=== PATIENT | male | born 1965 | race Caucasian/White ===

== ENCOUNTER 2017-01-27 07:46 | Inpatient (IN) | payer MEDICAID ==
[~2017-01-27] VITALS: Ht 167.6 cm; Wt 72.6 kg
[2017-01-27 08:35] LABS: EOSINOPHILS % (AUTO) 1.5 % (0.0-3.0); LYMPHOCYTES % (AUTO) 18.9 % (20.0-45.0); MEAN CORPUSCULAR HEMOGLOBIN 28.9 PG (27.0-31.0); MEAN CORPUSCULAR HGB CONC 33.2 G/DL (32.0-36.0); MEAN CORPUSCULAR VOLUME 87 FL (80-99); MEAN PLATELET VOLUME 7.1 FL (6.5-10.1); MONOCYTES % (AUTO) 8.2 % (1.0-10.0); NEUTROPHILS % (AUTO) 70.4 % (45.0-75.0); PLATELET COUNT 297 K/UL (150-450); RED BLOOD COUNT 4.84 M/UL (4.70-6.10); RED CELL DISTRIBUTION WIDTH 12.2 % (11.6-14.8); WHITE BLOOD COUNT 11.1 K/UL (4.8-10.8)
[2017-01-27 08:50] LABS: ACETAMINOPHEN < 10 ug/mL (10-30); ALANINE AMINOTRANSFERASE 63 U/L (3-41); ALBUMIN/GLOBULIN RATIO 1.4 (1.0-2.7); ALCOHOL < 10 mg/dL; ANION GAP 20 (5-15); ASPARTATE AMINO TRANSFERASE 161 U/L (5-40); CALCIUM 9.4 mg/dL (8.6-10.2); CARBON DIOXIDE 21 mEQ/L (20-30); CHLORIDE 93 mEQ/L (98-107); CREATININE 1.2 mg/dL (0.7-1.2); GLOMERULAR FILTRATION RATE > 60 mL/min (>60); HEMOLYSIS 9; POTASSIUM 3.5 mEQ/L (3.4-4.9); SODIUM 134 mEQ/L (135-145); TOTAL PROTEIN 7.5 g/dL (6.6-8.7)
[2017-01-27] MEDS ORDERED: Trihexyphenidyl 2mg tab ORAL ONE (09:30)
[2017-01-27 10:06] VITALS: BP 120/70
--- NOTE | 2017-01-27 10:34 | Emergency Room Report ---
History of Present Illness General Chief Complaint: Behavioral Complaint Source: Patient, EMS Present Illness HPI 51 YOM BIBEMS with [employer]-placed 5150 for homicidal ideation. Patient endorses hearing voices, told him to hurt others. Denies SI. States did not take his risperdal for last "few days." States has enough meds at home. Also endorses drug use yesterday. Denies other medical problems. Allergies: Coded Allergies: AMOXICILLIN (Verified Allergy, Intermediate, 01/27/17) Patient History Past Medical History: psych hx Past Surgical History: none Pertinent Family History: none Social History: Reports: drug use, smoking Immunizations: UTD Reviewed Nursing Documentation: PMH: Agreed, PSxH: Agreed Nursing Documentation-PMH Hx Cardiac Problems: No Hx Hypertension: No Hx Pacemaker: No Hx Asthma: No Hx COPD: No Hx Diabetes: No Hx Cancer: No Hx Gastrointestinal Problems: No Hx Dialysis: No History Of Psychiatric Problem: Yes Hx Neurological Problems: No Hx Cerebrovascular Accident: No Hx Seizures: No Review of Systems All Other Systems: negative except mentioned in HPI Physical Exam Vital Signs Date Time Temp Pulse Resp B/P Pulse Ox O2 Delivery O2 Flow Rate FiO2 01/27/17 07:38 98.1 73 16 118/74 98 Room Air Sp02 EP Interpretation: reviewed, normal General Appearance: normal inspection, well appearing, no apparent distress, alert, GCS 15, non-toxic Head: normocephalic, atraumatic Eyes: bilateral eye EOMI, bilateral eye PERRL ENT: normal ENT inspection, hearing grossly normal, normal voice Neck: normal inspection, full range of motion, supple, no bony tend Respiratory: normal inspection, lungs clear, normal breath sounds, no respiratory distress, no retraction, no wheezing Cardiovascular #1: regular rate, rhythm, no edema Gastrointestinal: normal inspection, normal bowel sounds, non tender, soft, no guarding, no hernia Genitourinary: no CVA tenderness Musculoskeletal: normal inspection, back normal, normal range of motion, Jennifer' s Sign negative Neurologic: normal inspection, alert, oriented x3, responsive, rn travel III-XII nml as tested, motor strength/tone normal, speech normal Psychiatric: normal inspection, judgement/insight normal, memory normal, mood/ affect normal, no delusions Skin: normal inspection, normal color, no rash Lymphatic: normal inspection Medical Decision Making Diagnostic Impression: Primary Impression: Homicidal ideation Additional Impressions: Rhabdomyolysis Qualified Codes: M62.82 - Rhabdomyolysis Methamphetamine abuse Marijuana abuse ER Course Labs: Mild leuks 11k. CK 7K. elevated serum Cr Utox: Meth and MJ A: Rhabdomyolysis with DEMAR - 2L NS given in ED HI - Patient states voices "have mellowed out." Was given his dose of risperdal in ED - Mild leuks likely stress reaction from drug use. No obvious source of infection - Psychiatrist Dr Rolon saw patient in ED, will follow on floor Endorsed to Dr Oates at 1226pm for med/surg admission Last Vital Signs Date Time Temp Pulse Resp B/P Pulse Ox O2 Delivery O2 Flow Rate FiO2 01/27/17 10:06 98.0 78 16 120/70 98 Room Air Status: improved Disposition: ADMITTED INPATIENT Condition: Serious Referrals: [facility]ERRING (PCP) DOUGLAS GUZMÁN M.D. Jan 27, 2017 10:34
[2017-01-27 13:11] VITALS: BP 125/75
[2017-01-27] MEDS ORDERED: PROZAC20 MG ORAL (14:13)
[2017-01-27] MEDS ORDERED: RISPERDAL1 MG PO (14:13)
[2017-01-27] MEDS ORDERED: TRIHEXYPHENIDYL2 MG ORAL (14:13)
[2017-01-27] MEDS ORDERED: Morphine Sulfate 2mg/ml Inj IVP PRN (14:15)
[2017-01-27] MEDS ORDERED: Zolpidem 5mg tab ORAL PRN (14:15)
[2017-01-27] MEDS ORDERED: Mylanta II UD 30ml ORAL PRN (14:15)
[2017-01-27] MEDS ORDERED: LORazepam Inj 2mg/ml 1ml IV PRN (14:15)
[2017-01-27] MEDS ORDERED: Miralax 17gm pkt ORAL PRN (14:15)
[2017-01-27 16:00] VITALS: BP 118/69
[2017-01-27] MEDS: Sodium Bicarbonate 150 ML in D5W 1000ml 1,000 ML IV SCH (17:10)
[2017-01-27 20:00] VITALS: BP 120/75
--- NOTE | 2017-01-27 20:44 | History and Physical ---
History of Present Illness General Date patient seen: Jan 27, 2017 Reason for Hospitalization: Behavioral Complaint Present Illness HPI 51 year old male with hx of schizophrenia was brought in with [employer]-placed 5150 for homicidal ideation. Patient states that he is hearing voices, told him to hurt others. He did not take his risperdal for last few days. He is admitted for further evaluation. Allergies: Coded Allergies: AMOXICILLIN (Verified Allergy, Intermediate, 01/27/17) Medication History Scheduled Fluoxetine Hcl* (Prozac*), 20 MG ORAL DAILY, (Reported) Risperidone* (Risperdal*), 1 MG PO DAILY, (Reported) Trihexyphenidyl Hcl* (Artane*), 5 MG ORAL DAILY, (Reported) Patient History Healthcare decision maker Resuscitation status Advanced Directive on File Yes Past Medical/Surgical History Past Medical/Surgical History: (1) Methamphetamine abuse (2) Rhabdomyolysis Review of Systems All Other Systems: negative except mentioned in HPI Physical Exam General Appearance: WD/WN, no apparent distress Lines, tubes and drains: peripheral, central line HEENT: normocephalic, atraumatic Neck: non-tender, normal alignment Respiratory/Chest: chest wall non-tender, lungs clear Breasts: no masses Cardiovascular/Chest: normal peripheral pulses Abdomen: normal bowel sounds, non tender Genitourinary/Rectal: normal genital exam Last 24 Hour Vital Signs Date Time Temp Pulse Resp B/P Pulse Ox O2 Delivery O2 Flow Rate FiO2 01/27/17 13:37 78 16 120/70 98 Room Air 01/27/17 13:11 76 16 125/75 99 Room Air 01/27/17 10:06 98.0 78 16 120/70 98 Room Air 01/27/17 07:38 98.1 73 16 118/74 98 Room Air Laboratory Tests Test 01/27/17 08:10 White Blood Count 11.1 K/UL (4.8-10.8) H Red Blood Count 4.84 M/UL (4.70-6.10) Hemoglobin 14.0 G/DL (14.2-18.0) L Hematocrit 42.2 % (42.0-52.0) Mean Corpuscular Volume 87 FL (80-99) Mean Corpuscular Hemoglobin 28.9 PG (27.0-31.0) Mean Corpuscular Hemoglobin Concent 33.2 G/DL (32.0-36.0) Red Cell Distribution Width 12.2 % (11.6-14.8) Platelet Count 297 K/UL (150-450) Mean Platelet Volume 7.1 FL (6.5-10.1) Neutrophils (%) (Auto) 70.4 % (45.0-75.0) Lymphocytes (%) (Auto) 18.9 % (20.0-45.0) L Monocytes (%) (Auto) 8.2 % (1.0-10.0) Eosinophils (%) (Auto) 1.5 % (0.0-3.0) Basophils (%) (Auto) 1.0 % (0.0-2.0) Sodium Level 134 mEQ/L (135-145) L Potassium Level 3.5 mEQ/L (3.4-4.9) Chloride Level 93 mEQ/L (98-107) L Carbon Dioxide Level 21 mEQ/L (20-30) Anion Gap 20 (5-15) H Blood Urea Nitrogen 27 mg/dL (7-23) H Creatinine 1.2 mg/dL (0.7-1.2) Estimat Glomerular Filtration Rate > 60 mL/min (>60) Glucose Level 154 mg/dL (74-106) H Calcium Level 9.4 mg/dL (8.6-10.2) Total Bilirubin 0.9 mg/dL (0.0-1.2) Aspartate Amino Transf (AST/SGOT) 161 U/L (5-40) H Alanine Aminotransferase (ALT/SGPT) 63 U/L (3-41) H Alkaline Phosphatase 70 U/L (40-129) Total Creatine Kinase 7178 U/L (38-174) H Total Protein 7.5 g/dL (6.6-8.7) Albumin 4.4 g/dL (3.5-5.2) Globulin 3.1 g/dL Albumin/Globulin Ratio 1.4 (1.0-2.7) Salicylates Level < 1 mg/dL (10-30) L Urine Opiates Screen Negative (NEGATIVE) Acetaminophen Level < 10 ug/mL (10-30) L Urine Barbiturates Screen Negative (NEGATIVE) Phencyclidine (PCP) Screen Negative (NEGATIVE) Urine Amphetamines Screen Positive (NEGATIVE) H Urine Benzodiazepines Screen Negative (NEGATIVE) Urine Cocaine Screen Negative (NEGATIVE) Urine Marijuana (THC) Screen Positive (NEGATIVE) H Serum Alcohol < 10 mg/dL Height (Feet): 5 Height (Inches): 6.00 Weight (Pounds): 160 Medications Current Medications Medications (Trade) Dose Ordered Sig/Bibi Route PRN Reason Start Time Stop Time Status Last Admin Dose Admin Acetaminophen (Tylenol) 650 mg Q4H PRN ORAL fever 01/27/17 14:15 02/26/17 14:14 Al Hydroxide/Mg Hydroxide (Mylanta II) 30 ml Q6H PRN ORAL dyspepsia 01/27/17 14:15 02/26/17 14:14 Dextrose STAT PRN IV Hypoglycemia 01/27/17 14:15 02/26/17 14:14 Lorazepam (Ativan 2mg/ml 1ml) 0.5 mg Q4H PRN IV For Anxiety 01/27/17 14:15 02/03/17 14:14 Morphine Sulfate (Morphine Sulfate) 1 mg Q4H PRN IVP Pain 4-10 01/27/17 14:15 02/03/17 14:14 Ondansetron HCl (Zofran) 4 mg Q6H PRN IVP Nausea & Vomiting 01/27/17 14:15 02/26/17 14:14 Polyethylene Glycol (Miralax) 17 gm HSPRN PRN ORAL Constipation 01/27/17 14:15 02/26/17 14:14 Sodium Bicarbonate/ Dextrose (Sodium Bicarbonate/D5W 1000ml) 1,150 ml @ 100 mls/hr [id number] IV 01/27/17 15:00 02/26/17 14:59 01/27/17 17:10 Zolpidem Tartrate (Ambien) 5 mg HSPRN PRN ORAL Insomnia 01/27/17 14:15 02/26/17 14:14 Assessment/Plan Problem List: (1) Acute psychosis ICD Codes: F23 - Brief psychotic disorder SNOMED: 95188597 (2) Homicidal ideation ICD Codes: R45.850 - Homicidal ideations SNOMED: 822262467 (3) Rhabdomyolysis ICD Codes: M62.82 - Rhabdomyolysis SNOMED: 676107117 Qualifiers: Qualified Codes: M62.82 - Rhabdomyolysis (4) Methamphetamine abuse ICD Codes: F15.10 - Other stimulant abuse, uncomplicated SNOMED: 801635822 (5) Marijuana abuse ICD Codes: F12.10 - Cannabis abuse, uncomplicated SNOMED: 15921489 Assessment/Plan psych evaluation symptomatic treatment antipsychotic CESAR RESTREPO Jan 27, 2017 20:44
[2017-01-28] VITALS: BP 115/62
[2017-01-28] MEDS: Sodium Bicarbonate 150 ML in D5W 1000ml 1,000 ML IV SCH ×2 (03:20→14:00)
[2017-01-28 04:00] VITALS: BP 106/58
[2017-01-28 07:33] LABS: BASOPHILS % (AUTO) 1.2 % (0.0-2.0); EOSINOPHILS % (AUTO) 2.5 % (0.0-3.0); LYMPHOCYTES % (AUTO) 31.6 % (20.0-45.0); MEAN CORPUSCULAR HEMOGLOBIN 29.5 PG (27.0-31.0); MEAN CORPUSCULAR HGB CONC 33.1 G/DL (32.0-36.0); MEAN CORPUSCULAR VOLUME 89 FL (80-99); MEAN PLATELET VOLUME 6.4 FL (6.5-10.1); MONOCYTES % (AUTO) 8.2 % (1.0-10.0); NEUTROPHILS % (AUTO) 56.5 % (45.0-75.0); PLATELET COUNT 202 K/UL (150-450); RED BLOOD COUNT 4.03 M/UL (4.70-6.10); RED CELL DISTRIBUTION WIDTH 12.6 % (11.6-14.8); WHITE BLOOD COUNT 6.5 K/UL (4.8-10.8)
[2017-01-28 07:41] LABS: ALANINE AMINOTRANSFERASE 40 U/L (3-41); ALBUMIN/GLOBULIN RATIO 1.5 (1.0-2.7); ANION GAP 11 (5-15); ASPARTATE AMINO TRANSFERASE 72 U/L (5-40); CALCIUM 8.6 mg/dL (8.6-10.2); CARBON DIOXIDE 30 mEQ/L (20-30); CHLORIDE 99 mEQ/L (98-107); CHOLESTEROL 110 mg/dL (< 200); CHOLESTEROL/HDL RATIO 3.2 (3.3-4.4); CREATININE 0.8 mg/dL (0.7-1.2); GLOMERULAR FILTRATION RATE > 60 mL/min (>60); HEMOLYSIS 6; LDL CHOLESTEROL (CALC.) 64 mg/dL (60-99); POTASSIUM 3.1 mEQ/L (3.4-4.9); SODIUM 140 mEQ/L (135-145); TOTAL PROTEIN 5.6 g/dL (6.6-8.7)
[2017-01-28 07:42] LABS: THYROID STIMULATING HORMONE 0.805 uIU/mL (0.300-4.500)
[2017-01-28 08:00] VITALS: BP 108/57
[2017-01-28 12:00] VITALS: BP 116/74
--- NOTE | 2017-01-28 15:28 | Pulmonology Progress Note ---
Assessment/Plan Problems: (1) Acute psychosis (2) Homicidal ideation (3) Rhabdomyolysis (4) Methamphetamine abuse (5) Marijuana abuse Assessment/Plan pt is cleared by psychology d/c home with outpatient psych evaluation Subjective ROS Limited/Unobtainable: Yes Allergies: Coded Allergies: AMOXICILLIN (Verified Allergy, Intermediate, 01/27/17) Objective Last 24 Hour Vital Signs Date Time Temp Pulse Resp B/P Pulse Ox O2 Delivery O2 Flow Rate FiO2 01/28/17 12:00 97.8 64 18 116/74 97 Room Air 01/28/17 08:00 98.1 66 18 108/57 97 Room Air 01/28/17 04:00 97.4 73 16 106/58 99 Room Air 01/28/17 00:00 98.2 72 18 115/62 100 Room Air 01/27/17 20:00 98.1 80 18 120/75 99 Room Air 01/27/17 16:00 97.9 73 19 118/69 97 Room Air Intake and Output 01/27/17 01/28/17 19:00 07:00 Intake Total 224 ml 1250 ml Balance 224 ml 1250 ml Intake Oral 224 ml 450 ml IV Total 800 ml # Voids 1 1 # Bowel Movements 1 General Appearance: WD/WN HEENT: normocephalic, atraumatic Respiratory/Chest: chest wall non-tender, lungs clear Cardiovascular: normal peripheral pulses, normal rate Abdomen: normal bowel sounds, soft, non tender Extremities: no clubbing Skin: no lesions, no ulcers Laboratory Tests 01/28/17 05:45: White Blood Count 6.5, Red Blood Count 4.03L, Hemoglobin 11.9L, Hematocrit 35.9L , Mean Corpuscular Volume 89, Mean Corpuscular Hemoglobin 29.5, Mean Corpuscular Hemoglobin Concent 33.1, Red Cell Distribution Width 12.6, Platelet Count 202, Mean Platelet Volume 6.4L, Neutrophils (%) (Auto) 56.5, Lymphocytes ( %) (Auto) 31.6, Monocytes (%) (Auto) 8.2, Eosinophils (%) (Auto) 2.5, Basophils (%) (Auto) 1.2, Sodium Level 140, Potassium Level 3.1L, Chloride Level 99, Carbon Dioxide Level 30, Anion Gap 11, Blood Urea Nitrogen 11, Creatinine 0.8, Estimat Glomerular Filtration Rate > 60, Glucose Level 193H, Calcium Level 8.6, Total Bilirubin 0.5, Aspartate Amino Transf (AST/SGOT) 72H, Alanine Aminotransferase (ALT/SGPT) 40, Alkaline Phosphatase 54, Total Protein 5.6L, Albumin 3.4L, Globulin 2.2, Albumin/Globulin Ratio 1.5, Triglycerides Level 60, Cholesterol Level 110, LDL Cholesterol 64, HDL Cholesterol 34, Cholesterol/HDL Ratio 3.2L, Thyroid Stimulating Hormone (TSH) 0.805 Current Medications Medications (Trade) Dose Ordered Sig/Bibi Route PRN Reason Start Time Stop Time Status Last Admin Dose Admin Acetaminophen (Tylenol) 650 mg Q4H PRN ORAL fever 01/27/17 14:15 02/26/17 14:14 Al Hydroxide/Mg Hydroxide (Mylanta II) 30 ml Q6H PRN ORAL dyspepsia 01/27/17 14:15 02/26/17 14:14 Dextrose STAT PRN IV Hypoglycemia 01/27/17 14:15 02/26/17 14:14 Lorazepam (Ativan 2mg/ml 1ml) 0.5 mg Q4H PRN IV For Anxiety 01/27/17 14:15 02/03/17 14:14 Morphine Sulfate (Morphine Sulfate) 1 mg Q4H PRN IVP Pain 4-10 01/27/17 14:15 02/03/17 14:14 Ondansetron HCl (Zofran) 4 mg Q6H PRN IVP Nausea & Vomiting 01/27/17 14:15 02/26/17 14:14 Polyethylene Glycol (Miralax) 17 gm HSPRN PRN ORAL Constipation 01/27/17 14:15 02/26/17 14:14 Risperidone (RisperDAL) 2 mg BEDTIME ORAL 01/28/17 21:00 02/27/17 20:59 Sodium Bicarbonate/ Dextrose (Sodium Bicarbonate/D5W 1000ml) 1,150 ml @ 100 mls/hr [id number] IV 01/27/17 15:00 02/26/17 14:59 01/28/17 03:20 Zolpidem Tartrate (Ambien) 5 mg HSPRN PRN ORAL Insomnia 01/27/17 14:15 02/26/17 14:14 CESAR RESTREPO Jan 28, 2017 15:28
--- NOTE | 2017-01-28 19:58 | Progress Note ---
DATE: 01/28/2017 SUBJECTIVE: The patient is more alert, less confused. The patient is more engaged during the evaluation. During the previous encounter, he appeared to be psychotic and a bit confused. He is clearing up. He has not medically cleared yet. MENTAL STATUS EXAMINATION: The patient is alert and oriented x3. Mood is neutral. Affect is constricted, congruent with mood. Thought process is linear. Thought content, no suicidal or homicidal ideation. ASSESSMENT: 1. Substance use disorder, crystal methamphetamine. 2. Delirium is clearing up. PLAN: 1. The patient will be continued on risperidone. 2. We will continue to follow and readjust the medication. 3. The patient does not meet the criteria for 5150 hold nor psychiatric hospitalization. Rosalia Rolon M.D. DR: AMBERLY JOB#: [id number] CC:
--- NOTE | 2017-01-28 21:58 | Consultation ---
DATE OF CONSULTATION: 01/27/2017 HISTORY OF PRESENT ILLNESS: The patient was seen in the ER. This is a 51-year-old male with a history of depression and substance abuse disorder, who was brought into the ER on a 5150 hold. He was placed on a hold by the police for the homicidal ideation. During the evaluation, he was confused. He was thinking it is 1965 and he was also responding to internal stimuli. He stated he has been using crystal meth and was hearing voices, the voices telling him to hurt others. He did not have any specific plan. Per ER doctor, he was going to be admitted to the medical floor for rhabdomyolysis. He also has been off his medication. He was unable to provide any pertinent information in regards to his psychiatric condition other than he has been using crystal meth. PAST PSYCHIATRIC HISTORY: Unknown. PAST MEDICAL HISTORY: None. ALLERGIES: Amoxicillin. SUBSTANCE ABUSE DISORDER: Significant for crystal meth use. His toxicology is positive for marijuana as well as crystal meth. SOCIAL HISTORY: The patient is homeless. MENTAL STATUS EXAMINATION: The patient was found weak, arousable and is oriented to self and place. Disoriented to date and time or situation. Mood is neutral. Affect is flat, congruent with mood. Thought process is paucity of thought content. Thought content, he did not express any homicidal ideation with his house parent, however, he has auditory hallucinations. Cognition is impaired. Insight and judgment non-existent. ASSESSMENT: AXIS I Delirium due to rhabdomyolysis and drugs on crystal meth abuse. AXIS II Deferred. AXIS III History rhabdomyolysis. AXIS IV Low. AXIS V Global assessment of functioning is 10. PLAN: 1. Transfer the patient to medical floor for further medical treatment. 2. The patient was given antipsychotics in the ER and we will started the patient on risperidone 2 mg p.o. at bedtime. 3. The patient does not meet the criteria for inpatient level of care or 5150 hold, therefore the hold will be discontinued and the patient may leave the hospital when medically cleared. Rosalia Rolon M.D. DR: SALVADOR JOB#: [id number] CC:
--- NOTE | 2017-01-29 10:24 | Diagnostic Imaging Report ---
APPROVED REPORT CPT Code: 41387 Present Symptoms Comments: Pain BILATERAL: Imaging reveals a patent deep venous system bilaterally. There is no evidence of thrombus within the femoral, popliteal or tibial segments. The greater saphenous veins are also within normal limits. Doppler indicates normal spontaneous flow within these segments.
--- NOTE | 2017-01-30 10:29 | Discharge Summary ---
Discharge Summary Hospital Course Date of Admission Jan 27, 2017 at 11:19 Date of Discharge Jan 28, 2017 at 15:50 Admitting Diagnosis rabdomylosis HPI Chris Brand is a 51 year old male who was admitted on Jan 27, 2017 at 11:19 for Rabdomylosis Hospital Course [id number] Discharge Discharge Disposition Patient was discharged to address in chart Discharge Diagnoses: Susy Escalona NP Jan 30, 2017 10:29
--- NOTE | 2017-01-31 00:29 | Discharge Summary 2 SIG ---
DATE OF ADMISSION: 01/27/2017 DATE OF DISCHARGE: 01/28/2017 CONSULTANTS: Rosalia Rolon M.D. BRIEF HOSPITAL COURSE: The patient is a 51-year-old male, who was taken by the [employer] due to behavioral complaints. The patient was placed on a 5150 for homicidal ideations, as the patient was endorsing hearing voices, and told him to hurt others. He has been not taking his Risperdal for the past few days and admits to drug use. On evaluation at ED, the patient had a mild leukocytosis with elevated creatine kinase and serum creatinine concerning for rhabdomyolysis. Urine toxicology was positive for methamphetamine and marijuana. Dr. Rolon was consulted. The patient was still confused and was assessed to have delirium due to rhabdomyolysis and crystal methamphetamines. The patient was admitted to medical floor and was given antipsychotics and was restarted on risperidone 2 mg p.o. nightly. The patient did not meet criteria for inpatient level of care for the 5150 hold and therefore, the hold was discontinued and the patient was cleared for discharge. FINAL DIAGNOSES: 1. Acute psychosis. 2. Acute Rhabdomyolysis. 3. Homicidal ideation. 4. Methamphetamine abuse. 5. Marijuana abuse. 6. Delirium. Yonatan Oates M.D. I have been assigned to dictate discharge summary on this account and I was not involved in the patient's management. Susy Escalona N.P. DR: BRE JOB#: [id number] CC: LINDSEY
== END 2017-01-28 15:50 | disposition home or self-care (01) | DRG 751 ==
LOC: EDBD 07:46 → EMR 08:31 → 3E 11:19 → EDBEDREQ 11:54
DX: F23 Brief psychotic disorder (principal); M62.82 Rhabdomyolysis; F15.121 Other stimulant abuse with intoxication delirium; R45.850 Homicidal ideations; F12.10 Cannabis abuse, uncomplicated; Z88.1 Allergy status to other antibiotic agents; Z59.0 Homelessness
CPT/HCPCS: 36415; 80053; 80061; 80300; 80329; 82550; 84443; 85025; 93970; J8499

== ENCOUNTER 2018-06-22 17:15 | Emergency (ER) | payer SELFPAY ==
[~2018-06-22] VITALS: Ht 185.4 cm; Wt 99.8 kg
[~2018-06-22 17:15] MED LIST: PROZAC20 MG ORAL; RISPERDAL1 MG PO; TRIHEXYPHENIDYL2 MG ORAL
[2018-06-22] MEDS ORDERED: NKM (17:25)
[2018-06-22 17:26] VITALS: BP 116/68
--- NOTE | 2018-06-22 17:48 | Emergency Room Report ---
History of Present Illness General Chief Complaint: Multiple Trauma/Fall Present Illness HPI 53-year-old male presents to the emergency department complaining of 10 out of 10 in severity pain to the bilateral knees times one day status post fall after jumping fence. He also reports that she sustained a laceration to the left medial forearm. Patient states he is up-to-date with tetanus vaccinations he denies bleeding at this time. Patient denies hitting his head or losing consciousness. Patient states he has not taken medication for his symptoms. Denies numbness tingling or loss of sensation or gross motor movements of the extremities, incontinence of bowel or bladder. Denies CP, Palpitations, LOC, AMS , dizziness, Changes in Vision, weakness or a sudden severe headache. Allergies: Coded Allergies: AMOXICILLIN (Verified Allergy, Intermediate, 01/27/17) Patient History Past Medical History: see triage record Past Surgical History: none Pertinent Family History: none Immunizations: UTD Nursing Documentation-PMH Hx Cardiac Problems: No - HIV Hx Hypertension: No Hx Pacemaker: No Hx Asthma: No Hx COPD: No Hx Diabetes: No Hx Cancer: No Hx Gastrointestinal Problems: No Hx Dialysis: No Hx Neurological Problems: No Hx Cerebrovascular Accident: No Hx Seizures: No Review of Systems All Other Systems: negative except mentioned in HPI Physical Exam Vital Signs Date Time Temp Pulse Resp B/P (MAP) Pulse Ox O2 Delivery O2 Flow Rate FiO2 06/22/18 17:22 98.2 82 18 116/68 99 Room Air 98.2 Sp02 EP Interpretation: reviewed, normal General Appearance: no apparent distress, alert, GCS 15, non-toxic Head: normocephalic, atraumatic Eyes: bilateral eye normal inspection, bilateral eye PERRL ENT: hearing grossly normal, normal voice Neck: full range of motion Respiratory: chest non-tender, lungs clear, normal breath sounds, speaking full sentences Cardiovascular #1: regular rate, rhythm, normal capillary refill Rectal: deferred Genitourinary: normal inspection Musculoskeletal: back normal, gait/station normal, normal range of motion, tender - ttp to the bilateral anterior knees, no increased laxity noted. no obvious deformities Neurologic: alert, oriented x3, responsive, motor strength/tone normal, sensory intact, speech normal, grossly normal Psychiatric: judgement/insight normal, mood/affect normal Skin: normal color, no rash, warm/dry, well hydrated, laceration - appers old, healing process already began, no bleeding , some surrounding erythema and increased temp to palp. Medical Decision Making PA Attestation Dr. villanueva is my supervising Physician whom patient management has been discussed with. Diagnostic Impression: Primary Impression: Contusion of knee, right Qualified Codes: S80.01XA - Contusion of right knee, initial encounter Additional Impressions: Contusion of knee, left Qualified Codes: S80.02XA - Contusion of left knee, initial encounter Laceration ER Course 53-year-old male presents to the emergency department complaining of 10 out of 10 in severity pain to the bilateral knees times one day status post fall after jumping fence. He also reports that she sustained a laceration to the left medial forearm. Patient states he is up-to-date with tetanus vaccinations he denies bleeding at this time. Patient denies hitting his head or losing consciousness. Patient states he has not taken medication for his symptoms. Denies numbness tingling or loss of sensation or gross motor movements of the extremities, incontinence of bowel or bladder. Denies CP, Palpitations, LOC, AMS , dizziness, Changes in Vision, weakness or a sudden severe headache. Ddx considered but are not limited to laceration, tendon injury, cellulitis, fractures, d/l, abrasions, ligamental injury just to name a few. Vital signs: are WNL, pt. is afebrile H&PE are most consistent with: stellate laceration to the medial left forearm that is approx 2 cm in length ORDERS: -X-rays of bilateral knees to r/o fx. ED INTERVENTIONS: - The wound was copiously irrigated with normal saline no evidence of FB. the edges of the wound have begun to approximate and granular tissue noted. - suspect this may be an older laceration. d/w pt. reasoning for secondary closure. -Bacitracin and sterile dressing is applied. -Johnny wrap applied to the Left knee by wafer fab technician. Pt. remains neurovascularly intact. Johnny wrap applied to the Right knee by wafer fab technician. Pt. remains neurovascularly intact. Discussed with patient: That we make every effort to approximate the laceration as best as we can so that scarring will be as cosmetically pleasing as possible with our limited cosmetic skill set in the Emergency dept. Regardless of our best efforts there will be scarring after laceration repair. The extent of scarring is unknown at this time. DISCHARGE: At this time pt. is stable for d/c to home. Will provide printed patient care instructions, and any necessary prescriptions. Care plan and follow up instructions have been discussed with the patient prior to discharge. Other X-Ray Diagnostic Results Other X-Ray Diagnostic Results #1: X-Ray ordered: left knee # of Views/Limited Vs Complete: 3 View Indication: Pain EP Interpretation: Yes PA Xray: Interpretation reviewed, by supervising MD, and agrees with findings. Interpretation: no dislocation, no soft tissue swelling, no fractures Impression: No acute disease Electronically Signed by: Tiffanie Cisse PA-C Other X-Ray Diagnostic Results #2: X-Ray ordered: Right knee # of Views/Limited Vs Complete: 3 View Indication: Pain EP Interpretation: Yes PA Xray: Interpretation reviewed, by supervising MD, and agrees with findings. Interpretation: no dislocation, no soft tissue swelling, no fractures Impression: No acute disease Electronically Signed by: Tiffanie Cisse PA-C Last Vital Signs Date Time Temp Pulse Resp B/P (MAP) Pulse Ox O2 Delivery O2 Flow Rate FiO2 06/22/18 17:26 98.2 82 18 116/68 99 Room Air 98.2 Disposition: HOME, SELF-CARE Condition: Stable Scripts Ibuprofen* (MOTRIN*) 600 Mg Tablet 600 MG ORAL THREE TIMES A DAY, #30 TAB 0 Refills Prov: Tiffanie Cisse 06/22/18 Mupirocin* (MUPIROCIN*) 22 Gm Oint...g. 1 APPLIC TOPIC THREE TIMES A DAY, #22 GM Prov: Tiffanie Cisse 06/22/18 Clindamycin Hcl (CLINDAMYCIN HCL) 300 Mg Capsule 300 MG ORAL FOUR TIMES A DAY for 7 Days, #28 CAP Prov: Tiffanie Cisse 06/22/18 Patient Instructions: Contusion, [id number], Nonsutured Laceration Care Additional Instructions: Take medications as directed. Follow up with a Primary Care Provider in 3-5 days, even if your symptoms have resolved. --Please review list of primary care clinics, if you do not already have a primary care provider Return sooner to ED if new symptoms occur, or current symptoms become worse. - Please note that this Emergency Department Report was dictated using [employer] supervisor brick technology software, occasionally this can lead to erroneous entry secondary to interpretation by the dictation equipment. Tiffanie Cisse Jun 22, 2018 17:48
[2018-06-22] MEDS ORDERED: Bacitracin Oint UD TOPIC ONE ×2 (18:15→18:17)
[2018-06-22] MEDS ORDERED: CLINDAMYCIN HC300 MG ORAL (18:16)
[2018-06-22] MEDS ORDERED: MUPIROCIN22 GM TOPIC (18:16)
[2018-06-22] MEDS ORDERED: IBUPROFEN600 MG ORAL (18:20)
[2018-06-22 18:24] VITALS: BP 116/68
--- NOTE | 2018-06-23 10:01 | Diagnostic Imaging Report ---
Indication: Knee pain, status post fall Technique: 3 views of the ] knee Comparison: None Findings: There is medial compartment degenerative joint space narrowing. No acute fractures. No dislocations. There are superior pole patellar osteophytes. No definite suprapatellar effusion Impression: Degenerative changes. No acute process
--- NOTE | 2018-06-23 10:02 | Diagnostic Imaging Report ---
Indication: Knee pain, status post fall Technique: 3 views of the left knee Comparison: None Findings: There are large patellar osteophytes. There is medial compartmental degenerative joint space narrowing and medial and lateral osteophytes. No definite acute fractures. No dislocations. No definite suprapatellar effusion. Impression: Degenerative changes, as described. No definite acute bony trauma
== END 2018-06-22 18:25 | disposition home or self-care (01) ==
LOC: EMR 18:22
DX: S80.01XA Contusion of right knee, initial encounter (principal); S80.02XA Contusion of left knee, initial encounter; W13.8XXA Fall from, out of or through other building or structure, initial encounter; Y93.89 Activity, other specified; Y92.9 Unspecified place or not applicable; Z88.1 Allergy status to other antibiotic agents
CPT/HCPCS: 99284

== ENCOUNTER 2018-09-28 13:59 | Emergency (ER) | payer MEDICAID ==
[~2018-09-28] VITALS: Ht 182.9 cm; Wt 90.7 kg
[~2018-09-28 13:59] MED LIST changes: +CLINDAMYCIN HC300 MG ORAL; +IBUPROFEN600 MG ORAL; +MUPIROCIN22 GM TOPIC; +NKM
[2018-09-28 14:17] VITALS: BP 104/67
[2018-09-28] MEDS ORDERED: ATRIPLA TABLET1 EAC1 ORAL (14:23)
[2018-09-28] MEDS ORDERED: TAMIFLU75 MG ORAL (14:42)
[2018-09-28] MEDS ORDERED: TESSALON PERLE100 MG ORAL (14:42)
[2018-09-28] MEDS ORDERED: ALBUTEROL SULF8.5 GM INH (14:42)
--- NOTE | 2018-09-28 14:42 | Emergency Room Report ---
History of Present Illness General Chief Complaint: Diarrhea Source: Patient Present Illness HPI 53-year-old male patient presents ER complaining of cough and diarrhea for 3 days. Reports cough with green sputum. Denies hemoptysis. Reports history of asthma, states has not been using his inhaler, denies wheezing or breathing difficulties. Denies recent travel outside the country. Denies Neck or calf pain. Denies fever, chest pain, shortness of breath. Also reports diarrhea during this time, states diarrhea is watery. Denies vomiting. Denies blood in stool. Denies recent travel. Denies contacts with similar symptoms. history of HIV, states last test showed viral load undetectable and elevated CD4 count. denies history of heart attack or heart disease Allergies: Coded Allergies: AMOXICILLIN (Verified Allergy, Intermediate, 01/27/17) Patient History Past Medical History: see triage record Reviewed Nursing Documentation: PMH: Agreed; PSxH: Agreed Nursing Documentation-PMH Hx Cardiac Problems: No - HIV Hx Hypertension: No Hx Pacemaker: No Hx Asthma: No Hx COPD: No Hx Diabetes: No Hx Cancer: No Hx Gastrointestinal Problems: No Hx Dialysis: No Hx Neurological Problems: No Hx Cerebrovascular Accident: No Hx Seizures: No Review of Systems All Other Systems: negative except mentioned in HPI Physical Exam Vital Signs Date Time Temp Pulse Resp B/P (MAP) Pulse Ox O2 Delivery O2 Flow Rate FiO2 09/28/18 14:17 97.9 66 18 104/67 99 Room Air Sp02 EP Interpretation: reviewed, normal General Appearance: well appearing, no apparent distress, alert, GCS 15, non- toxic Head: normocephalic, atraumatic Eyes: bilateral eye normal inspection, bilateral eye PERRL ENT: hearing grossly normal, normal pharynx, no angioedema, normal voice, uvula midline, moist mucus membranes Neck: full range of motion Respiratory: lungs clear, normal breath sounds, no rhonchi, no respiratory distress, no accessory muscle use, no wheezing, speaking full sentences, other - no stridor Cardiovascular #1: regular rate, rhythm, no edema Gastrointestinal: normal bowel sounds, non tender, soft, no mass, non-distended , no guarding, no rebound Genitourinary: no CVA tenderness Musculoskeletal: back normal, digits/nails normal, gait/station normal, normal range of motion, non-tender Neurologic: alert, oriented x3, responsive, motor strength/tone normal, sensory intact Psychiatric: mood/affect normal Skin: no rash Medical Decision Making PA Attestation Dr. Preston is my supervising Physician whom patient management has been discussed with. Diagnostic Impression: Primary Impression: Diarrhea Additional Impression: Upper respiratory infection ER Course Pt. presents to the ED c/o diarrhea and cough. Ddx considered but are not limited to viral syndrome, gastritis, enteritis, URI, bronchitis, asthma exacerbation, pneumonia, influenza. Vital signs: are WNL, pt. is afebrile ORDERS: none required at this time, the diagnosis is clinical ED COURSE:' patient declined chest x-ray. lungs clear to auscultation, no wheezes rhonchi or rales. low suspicion for pneumonia. Denies difficulty breathing, does not require chest x-ray or breathing treatment at this time. Will provide patient with refill of albuterol medication and cough medication at discharge. we'll provide patient with Tamiflu to cover for possible influenza. Patient informed of likely viral cause of diarrhea symptoms. No fever, no blood in stool, no recent travel or hospitalizations, does not require abx treatment at this time. No signs of dehydration, moist mucus membranes. Patient reports eating and drinking normally. ER precautions given. DISCHARGE: Patient instructed on BRAT diet. Patient instructed to remain hydrated, drink plenty of fluids. Patient questions asked and answered. Patient states understanding and agreement to treatment plan. At this time pt. is stable for d/c to home. Patient is resting comfortably, laughing, in no acute distress, nontoxic appearing. Will provide printed patient care instructions, and any necessary prescriptions. Care plan and follow up instructions have been discussed with the patient prior to discharge. Patient instructed to followup with PCP in 3-5 days. Patient reports understanding and agreement to treatment plan. Patient questions asked and answered. ER precautions given; patient instructed to return to ER for new or worsening of symptoms including but not limited to fever, intractable vomiting, severe abdominal pain, blood in stool. - Please note that this Emergency Department Report was dictated using [employer] off machine unloader technology software, occasionally this can lead to erroneous entry secondary to interpretation by the dictation equipment. Last Vital Signs Date Time Temp Pulse Resp B/P (MAP) Pulse Ox O2 Delivery O2 Flow Rate FiO2 09/28/18 14:17 97.9 66 18 104/67 99 Room Air Disposition: HOME, SELF-CARE Condition: Stable Scripts Albuterol Sulfate* (ALBUTEROL SULFATE MDI*) 8.5 Gm Hfa.aer.ad 2 PUFF INH Q6H, #1 INH 0 Refills Prov: Alejandro Mix 09/28/18 Oseltamivir Phosphate (Tamiflu) 75 Mg Capsule 75 MG ORAL TWICE A DAY for 5 Days, #10 CAP Prov: Alejandro Mix 09/28/18 Benzonatate* (TESSALON PERLE*) 100 Mg Capsule 100 MG ORAL THREE TIMES A DAY for 20 Days, PERLE Prov: Alejandro Mix 09/28/18 Patient Instructions: Diarrhea, Adult, Upper Respiratory Infection, Adult, Easy -to-Read Additional Instructions: Followup with primary care provider in 3 -5 days. Avoid spicy foods, avoid dairy foods. BRAT diet: bananas, rice, apple sauce, toast. Clear liquid diet. Consider Imodium for diarrhea and Tylenol for pain symptoms. Take medications as directed. Patient questions asked and answered. ER precautions given, patient instructed to return to ER immediately for any new or worsening of symptoms. Alejandro Mix Sep 28, 2018 14:42
[2018-09-28 14:46] VITALS: BP 104/67
== END 2018-09-28 15:30 | disposition home or self-care (01) ==
LOC: EMR 15:03
DX: R19.7 Diarrhea, unspecified (principal); J06.9 Acute upper respiratory infection, unspecified; Z88.0 Allergy status to penicillin
CPT/HCPCS: 99282